=== PATIENT | female | born 1955 | race Caucasian/White ===

== ENCOUNTER 2021-02-14 06:54 | Emergency (ER) | payer OTHER ==
[2021-02-14] MEDS ORDERED: KETOROLAC 15 MG/ML VIAL IVP STA (07:08)
[2021-02-14] MEDS ORDERED: HYDROmorphone 1 MG/ML CARPUJECT IVP STA (07:08)
[2021-02-14] MEDS ORDERED: PROPOFOL 200 MG/20 ML VIAL IVP STA (07:31)
--- NOTE | 2021-02-14 07:56 | ED Physician Documentation ---
PD HPI UPPER EXT INJURY - Stated complaint Stated Complaint: RT SHOULDER INJURY - Chief complaint Chief Complaint: Ext Problem - History obtained from History obtained from: Patient, Family - History of Present Illness Location: Right Type of injury: Fall Where injury occurred: Home Timing - onset: Last night (11pm or so) Timing - details: Abrupt onset Worsened by: Moving Similar symptoms before: Has not had sx before - Additonal information Additional information: Trip and fall off 1 step last night. Isolated right shoulder injury. Note made that she had a cyst removed from her right middle finger yesterday. 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 - Present Medications Home Medications: Ambulatory Orders Medication Instructions Recorded Confirmed Atorvastatin [Lipitor] 10 mg ORAL HS 02/14/21 02/14/21 - Allergies Allergies/Adverse Reactions: Allergies Allergy/AdvReac Type Severity Reaction Status Date / Time No Known Drug Allergies Allergy Verified 02/14/21 07:13 - Social History Does the pt smoke?: No Smoking Status: Never smoker Does the pt drink ETOH?: No Does the pt have substance abuse?: No - Immunizations Immunizations are current?: Yes PD ED PE NORMAL - Vitals Vital signs reviewed: Yes - General General: Alert and oriented X 3, No acute distress - HEENT HEENT: PERRL, EOMI - Neck Neck: Supple, no meningeal sign, No bony TTP - Cardiac Cardiac: RRR, No murmur - Respiratory Respiratory: No respiratory distress, Clear bilaterally - Abdomen Abdomen: Non tender - Extremities Extremities: Other (There is an obvious deformity of the right shoulder, unable to range it at all.) - Neuro Neuro: Alert and oriented X 3, Normal speech Results - Vitals Vitals: Vital Signs - 24 hr 02/14/21 02/14/21 02/14/21 07:11 07:30 07:43 Temperature 36.8 C Heart Rate 66 78 74 Respiratory 18 16 16 Rate Blood Pressure 175/93 H 175/93 H 153/121 H O2 Saturation 99 97 99 02/14/21 02/14/2102/14/21 07:51 07:57 08:02 Temperature Heart Rate 77 72 73 Respiratory 18 18 17 Rate Blood Pressure 160/99 H 135/83 H 124/81 H O2 Saturation 93 98 97 02/14/21 08:32 Temperature 36.3 C L Heart Rate 75 Respiratory 18 Rate Blood Pressure 126/75 O2 Saturation 94 Oxygen O2 Source Room air - Rads (name of study) R shoulder xr Radiology: EMP read contemporaneously (Initial x-ray of the shoulder demonstrates anterior-inferior shoulder dislocation, postreduction film demonstrates anatomic alignment without evidence of fracture.) Procedures - Reduction Body part reduced: Right, Shoulder Fracture or dislocation: Dislocation Shoulder reduction technique: [place] / ext rotation Reduction aftercare: Alignment improved - Procedural sedation Sedation prep: Informed consent, Time out completed, PE performed (Mallampati 1), ASA 1 - healthy Sedation medications: propofol (60mg IVP) Patient status during sedation: Responds to tactile, Recovered uneventfully Sedation recovery: Recovered uneventfully Time in sedation (Minutes): 10 Departure - Departure Disposition: 01 Home, Self Care Clinical Impression: Dislocation, shoulder closed Qualifiers: Encounter type: initial encounter Laterality: right Qualified Code(s): S43.004A - Unspecified dislocation of right shoulder joint, initial encounter Condition: Good Record reviewed to determine appropriate education?: Yes Instructions: ED Dislocation Shoulder Redu Follow-Up: Harrison Kenyon MD [Provider Admit Priv/Credential] - Comments: You can take the hydrocodone/acetaminophen you have at home as per package instructions as needed for pain. Return for new or worsening symptoms. You karlos uld follow-up with orthopedics within the week to 10 days for follow-up. Call your general practitioner at [facility] to arrange for referral. Keep the sling on until you follow-up with orthopedics. They will recommend a total length of immobilization and potentially refer for physical therapy. Discharge Date/Time: 02/14/21 08:44
--- NOTE | 2021-02-14 08:11 | XRAY Report ---
PROCEDURE: Shoulder 2 View RT INDICATIONS: Status post reduction TECHNIQUE: 2 views of the shoulder were acquired. COMPARISON: None. FINDINGS: Bones: There has been interval reduction of the glenohumeral joint, now in anatomic alignment. No fra cture identified. High riding head suggestive of chronic rotator cuff tear. Glenohumeral and acromioc lavicular joint space narrowing with marginal osteophytosis. Soft tissues: No suspicious soft tissue calcifications. IMPRESSION: Interval reduction of the glenohumeral joint. No evidence of fracture. Reviewed by: Josh Donnelly MD on 02/14/2021 8:10 AM PDT Approved by: Josh Donnelly MD on 02/14/2021 8:10 AM PDT Station ID: [id number]
--- NOTE | 2021-02-14 08:19 | XRAY Report ---
PROCEDURE: Shoulder 3 View RT INDICATIONS: shoulder inj TECHNIQUE: 3 views of the shoulder were acquired. COMPARISON: None. FINDINGS: Anterior inferior glenohumeral dislocation. No fracture identified. Alignment at the AC joint is citlalli omic. There is moderate to severe acromioclavicular osteoarthritis IMPRESSION: Anterior-inferior shoulder dislocation. Findings are concordant with the preliminary study interpretation. Reviewed by: Driss Clarke MD on 02/14/2021 8:17 AM PDT Approved by: Driss Clarke MD on 02/14/2021 8:17 AM PDT Station ID: [id number]
[2021-02-14 08:33] VITALS: BP 126/75
== END 2021-02-14 08:44 | disposition home or self-care (01) ==
LOC: ED 06:54
DX: S43.084A Other dislocation of right shoulder joint, initial encounter (principal); W10.9XXA Fall (on) (from) unspecified stairs and steps, initial encounter; Y92.009 Unspecified place in unspecified non-institutional (private) residence as the place of occurrence of the external cause
CPT/HCPCS: 23655; 73030; 96374; 96375; 99152; 99283; 99285; J1170; 94770

== ENCOUNTER 2024-02-01 12:53 | Emergency (ER) | payer MEDICARE, OTHER ==
[2024-02-01 13:27] VITALS: BP 133/84; O2SAT 99
--- NOTE | 2024-02-01 13:37 | ED Physician Documentation ---
PD HPI LOWER EXT INJURY - Stated complaint Stated Complaint: SWOLLEN LT TOES - Chief complaint Chief Complaint: Ext Problem - History obtained from History obtained from: Patient - Additional information Additional information: She has had swelling of the left second and third toes for a couple of days. The third especially is bothering her and developed more of a white patch on the top of the toe. Her dog stepped on it at 1 point but she does not think it is related. No history of gout. 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, Hysterectomy, Other - Present Medications Home Medications: Ambulatory Orders Medication Instructions Recorded Confirmed Atorvastatin [Lipitor] 10 mg ORAL HS 02/14/21 02/14/21 Colchicine 0.6 mg PO Q1HR #2 tablet 02/01/24 HYDROcod/ACETAM 5/325 [[place] 5/325] 1 - 2 tab PO Q6H PRN #15 tablet 02/01/24 predniSONE [Deltasone] 60 mg PO DAILY 5 Days #15 tablet 02/01/24 - Allergies Allergies/Adverse Reactions: Allergies Allergy/AdvReac Type Severity Reaction Status Date / Time No Known Drug Allergies Allergy Verified 02/01/24 13:23 - Social History Does the pt smoke?: No Smoking Status: Never smoker Does the pt drink ETOH?: No Does the pt have substance abuse?: No - Immunizations Immunizations are current?: Yes PD ED PE NORMAL - Vitals Vital signs reviewed: Yes - General General: Alert and oriented X 3, No acute distress - Extremities Extremities: Other (The second and third left toes are swollen tender and red and there is a white patch of subcutaneous material on the dorsum of the third toe which could be pus or tophaceous material.) - Neuro Neuro: Alert and oriented X 3 Results - Vitals Vitals: Vital Signs - 24 hr 02/01/24 13:23 Temperature 36.3 C L Heart Rate 81 Respiratory 16 Rate Blood Pressure 133/84 H O2 Saturation 99 Oxygen O2 Source Room air Procedures - General procedure General procedure: After verbal informed consent the left foot was prepped and draped and a digital block was done with lidocaine of the third toe with excellent anesthesia. Then the area overlying the white spot was Opened with a stab incision and expressed and tophaceous material was removed. It was sent for culture out of an abundance of caution, this looks like gouty arthritis now. Departure - Departure Disposition: 01 Home, Self Care Clinical Impression: Gout Qualifiers: Gout site: toe Gout etiology: unspecified cause Chronicity: acute Laterality: left Qualified Code(s): M10.9 - Gout, unspecified Condition: Good Record reviewed to determine appropriate education?: Yes Instructions: ED Arthritis Gout, ED Diet Gout Prescriptions: Colchicine 0.6 mg PO Q1HR #2 tablet predniSONE [Deltasone] 60 mg PO DAILY 5 Days #15 tablet HYDROcod/ACETAM 5/325 [[place] 5/325] 1 - 2 tab PO Q6H PRN #15 tablet PRN Reason: Pain Comments: I sent your prescriptions to [facility] in [place]. As discussed, the we have now confirmed the diagnosis of gout by viewing the material in the joint there which does look consistent with gout. A culture was done out of an abundance of caution I think will be negative. If a change in therapy is necessary based on that we will call you in a couple of days. Call your doctor to arrange a follow-up appointment, make the next available appointment. In the interim, return anytime if worse or if new symptoms develop. I am prescribing a short course of narcotic pain medication for you. These are potentially dangerous and addictive medications that should be used carefully. These medications may constipate you. Take an [id number] stool softener (docusate) twice daily with plenty of water while taking these medications. If you go 24 hours without a bowel movement, take [id number] miralax, per package instructions. Do not drink or drive while taking these medications. If you received narcotic or sedating medications while in the emergency department, do not drive for 24 hours. Store this medication in a safe, secure place and out of reach of children. It is a violation of federal law to give or sell this medication to another person or to use in a manner other than prescribed. The ED will not refill narcotic prescriptions, including prescriptions lost or stolen. To dispose of unwanted medications: 1. [facility] provides a drop box for medication in pill form only (no liquids) 8:00 am to 4:30 p.m. Friday-Friday in the lobby of the [facility], [address] Empty pills into ziplock bag before disposal. Call [phone] for information. 2.[employer] is a free service available to all [facility] residents. Go to [email or web address] Note that many narcotic pain relievers also contain Tylenol/acetaminophen. Please ensure that your total dose of acetaminophen from all sources does not exceed 3 g (3000 mg) per day. Forms: PCP List
[2024-02-01] MEDS: lidocaine 1% 20 ML MDV SUBQ ONE (14:16)
[2024-02-01] MEDS: COLCHICINE 0.6 MG TABLET PO STA (14:26)
== END 2024-02-01 14:20 | disposition home or self-care (01) ==
LOC: ED 12:53
DX: M10.9 Gout, unspecified (principal); E78.00 Pure hypercholesterolemia, unspecified; Z79.899 Other long term (current) drug therapy
CPT/HCPCS: 10060; 87070; 87205; 99283; A9270

== ENCOUNTER 2024-02-03 14:26 | Emergency (ER) | payer MEDICARE ==
--- NOTE | 2024-02-03 15:01 | ED Physician Documentation ---
PD HPI LOWER EXT INJURY - Stated complaint Stated Complaint: LT FOOT TOE SWELLING - Chief complaint Chief Complaint: Ext Problem - Additional information Additional information: 68-year-old female is here at the emergency department about 3 days ago for gout on her left third toe. Incision was made on the dorsal aspect of the left toe and the gout was drained successfully. She also received a one-time dose of colchicine in the emergency department. She presents back to the emergency department for worsening right second toe pain and is concerned that the gout is getting worse in her second toe. Patient is seeking for incision and drainage. 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, Other - Present Medications Home Medications: Ambulatory Orders Medication Instructions Recorded Confirmed Atorvastatin [Lipitor] 10 mg ORAL HS 02/14/21 02/14/21 Colchicine 0.6 mg PO Q1HR #2 tablet 02/01/24 HYDROcod/ACETAM 5/325 [[place] 5/325] 1 - 2 tab PO Q6H PRN #15 tablet 02/01/24 predniSONE [Deltasone] 60 mg PO DAILY 5 Days #15 tablet 02/01/24 Indomethacin [Indocin] 50 mg PO TID 5 Days #30 cap 02/03/24 - Allergies Allergies/Adverse Reactions: Allergies Allergy/AdvReac Type Severity Reaction Status Date / Time No Known Drug Allergies Allergy Verified 02/03/24 14:42 - Social History Does the pt smoke?: No Smoking Status: Never smoker Does the pt drink ETOH?: No Does the pt have substance abuse?: No - Immunizations Immunizations are current?: Yes - POLST Patient has POLST: No PD ED PE NORMAL - Vitals Vital signs reviewed: Yes - General General: Alert and oriented X 3, No acute distress, Well developed/nourished - Derm Derm: Other (. Left third toe: Significant erythema with swelling to the dorsal aspect of the toe just below toenail.) Results - Vitals Vitals: Vital Signs - 24 hr 02/03/24 02/03/24 14:33 15:53 Temperature 37.1 C 37.0 C Heart Rate 75 72 Respiratory 19 16 Rate Blood Pressure 139/85 H 130/82 H O2 Saturation 99 100 Oxygen O2 Source Room air PD Medical Decision Making - ED course ED course: 68-year-old female presents emergency department for left third toe likely gout flare. I considered an abscess but given that patient's recent cultures were negative for the patient has known gout in the left third toe and says this is very similar presentation. A digital block was completed successfully to the left second toe with lidocaine an incision was made at the top portion of the swelling of the left second toe with a large amount of white discharge was ext racted. I was able to extract all gout without any complications. Indomethacin was sent to patient's preferred pharmacy. Cultures were not obtained incisionally patient is experiencing infection. Departure - Departure Disposition: 01 Home, Self Care Clinical Impression: Tophus of toe concurrent with and due to gout Instructions: ED Arthritis Gout, ED Diet Gout Prescriptions: Indomethacin [Indocin] 50 mg PO TID 5 Days #30 cap Comments: Thank you for trusting us with your care, we have evaluated you for your gout of your left second toe. We have drained it without any difficulty and I would recommend following up with your primary care provider about today's ER visit. I have sent a prescription of indomethacin that you can take up to 3 times a day for gout pain to your preferred pharmacy.If you start to develop any fevers or chills drainage that is yellow/green or any other concerning symptoms please come back to the ER for further evaluation. Forms: PCP List Discharge Date/Time: 02/03/24 15:53
[2024-02-03] MEDS: BUPIVACAINE 0.5% PF 10 ML VIAL SUBQ STA (15:27)
[2024-02-03 15:55] VITALS: BP 130/82; O2SAT 100
== END 2024-02-03 15:53 | disposition home or self-care (01) ==
LOC: ED 14:26
DX: M1A.9XX1 Chronic gout, unspecified, with tophus (tophi) (principal); G89.18 Other acute postprocedural pain; E78.00 Pure hypercholesterolemia, unspecified
CPT/HCPCS: 10060; 99283